=== PATIENT | female | born 1980 | race American Indian/Alaskan Native ===

== ENCOUNTER 2019-01-12 13:11 | Emergency (ER) | payer MEDICAID, OTHER ==
[2019-01-12 13:55] VITALS: BP 133/92
--- NOTE | 2019-01-12 14:08 | EDM.PDOC ---
<Nellie Jimenez - Last Filed: 01/12/19 15:06> ED HPI GENERAL MEDICAL PROBLEM - General Chief Complaint: Neuro Symptoms/Deficits Stated Complaint: RIGHT SIDE OF FACE IS NUMB Time Seen by Provider: 01/12/19 13:50 Source of Information: Reports: Patient History Limitations: Reports: No Limitations - History of Present Illness INITIAL COMMENTS - FREE TEXT/NARRATIVE: Patient presents to ER today with CC of right sided facial numbness/weakness that began initially on Thursday. Patient states that she "woke up like this", patient denies hitting her head or sustaining any trauma. Patient reports that she has to physically close her right eye lid or it won't close. Patient does not demonstrate any dysphagia, although there is noted decreased movement to right side of mouth. Patient denies any weakness in her extremities, shortness of breath, or chest pain. Patient VSS. Patient does have PMH of leaking aortic valve that she is currently doctoring for, she states that her "leak is not large enough to need surgery". Patient is alert & oriented x4. Patient NIH scale negative. PERRLA. Onset Date: 01/09/19 Location: Reports: Face (right sided facial weakness/numbness) Associated Symptoms: Reports: No Other Symptoms - Related Data Allergies Allergy/AdvReac Type Severity Reaction Status Date / Time acetaminophen [From Tylenol] Allergy Stomach Verified 01/12/19 13:59 Ache ibuprofen [From Motrin] Allergy Tachycardia Verified 01/12/19 13:59 Home Meds: Home Meds Buprenorphine HCl/Naloxone HCl [[place]av[place] 2.1-0.3 mg Film] 1 unit PO DAILY [History] Past Medical History Cardiovascular History: Reports: Other (See Below) Other Cardiovascular History: mass in heart and leaking valve Psychiatric History: Reports: Addiction Endocrine/Metabolic History: Reports: Diabetes, Type II Social & Family History - Tobacco Use Smoking Status *Q: Former Smoker Used Tobacco, but Quit: Yes Month/Year Tobacco Last Used: 2016 - Caffeine Use Caffeine Use: Reports: Coffee - Recreational Drug Use Recreational Drug Use: No ED ROS GENERAL - Review of Systems Review Of Systems: ROS reveals no pertinent complaints other than HPI. ED EXAM, NEURO - Physical Exam Exam: See Below Exam Limited By: No Limitations General Appearance: Alert, WD/WN, No Apparent Distress Ears: Normal External Exam, Normal Canal, Hearing Grossly Normal, Normal TMs Nose: Normal Inspection, Normal Mucosa, No Blood Throat/Mouth: Normal Inspection, Normal Lips, Normal Teeth, Normal Gums, Normal Oropharynx, Normal Voice, No Airway Compromise Head Exam: Atraumatic, Normocephalic, Other (right sided facial numbness; inability to close eye without manually doing so. Additionally noted, right sided mouth has decreased movement ) Neck: Normal Inspection, Supple, Non-Tender, Full Range of Motion Respiratory/Chest: No Respiratory Distress, Lungs Clear, Normal Breath Sounds, No Accessory Muscle Use, Chest Non-Tender Cardiovascular: Normal Peripheral Pulses, Regular Rate, Rhythm, No Edema, No Gallop, No JVD, No Murmur, No Rub GI/Abdominal: Normal Bowel Sounds, Soft, Non-Tender, No Organomegaly, No Distention, No Abnormal Bruit, No Mass Neurological: Alert, Normal Mood/Affect, Normal Dorsiflexion, Normal Plantar Flexion, Normal Gait, Normal Reflexes, No Motor/Sensory Deficits, Oriented x 3. No: CN II-XII Intact (cranial nerve IIV impaired on right side) Back Exam: Normal Inspection, Full Range of Motion, NT Extremities: Normal Inspection, Normal Range of Motion, Non-Tender, No Pedal Edema, Normal Capillary Refill Psychiatric: Normal Affect, Normal Mood Skin Exam: Warm, Dry, Intact, Normal Color, No Rash Course - Vital Signs Last Recorded V/S: Last Vital Signs Temp 97.1 F 01/12/19 13:52 Pulse 68 01/12/19 13:52 Resp 16 01/12/19 13:52 BP 133/92 H 01/12/19 13:52 Pulse Ox 96 01/12/19 13:52 - Orders/Labs/Meds Labs: Laboratory Tests 01/12/19 01/12/19 01/12/19 Range/Units 14:22 14:22 14:22 WBC 6.1 (5.0-10.0) 10^3/uL RBC 4.87 (4.2-5.4) 10^6/uL Hgb 15.4 (12.0-16.0) g/dL Hct 44.4 (37.0-47.0) % MCV 91.2 (80-100) fL MCH 31.6 (27.0-34.0) pg MCHC 34.7 (33.0-35.0) g/dL Plt Count 109 L (150-450) 10^3/uL Neut % (Auto) 66.3 (42.2-75.2) % Lymph % (Auto) 24.9 (20.5-50.1) % [place] % (Auto) 6.7 (2-8) % Eos % (Auto) 1.8 (1.0-3.0) % Baso % (Auto) 0.3 (0.0-1.0) % Sodium 135 D (135-145) mmol/L Potassium 4.6 (3.6-5.0) mmol/L Chloride 105 D (101-111) mmol/L Carbon Dioxide 22.0 (21.0-31.0) mmol/L Anion Gap 12.6 BUN 18 D (7-18) mg/dL Creatinine 1.0 D (0.6-1.3) mg/dL Est Cr Clr Drug Dosing 70.01 mL/min Estimated GFR (MDRD) > 60 BUN/Creatinine Ratio 18.00 Glucose 165 H (74-105) mg/dL Calcium 8.7 (8.4-10.2) mg/dl Total Bilirubin 1.2 H (0.2-1.0) mg/dL AST 321 H (10-42) IU/L ALT 382 H (10-60) IU/L Alkaline Phosphatase 105 (42-121) IU/L C-Reactive Protein 0.9 (0.0-1.3) mg/dL Total Protein 8.7 H (6.7-8.2) g/dl Albumin 3.3 (3.2-5.5) g/dl Globulin 5.4 Albumin/Globulin Ratio 0.61 - Radiology Interpretation Free Text/Narrative:: CT HEAD WO CONTRAST: No acute intracranial abnormality. Departure - Departure Time of Disposition: 15:00 Disposition: Home, Self-Care 01 Condition: Good Clinical Impression: Hernandez's palsy, Elevated liver enzymes - Discharge Information *PRESCRIPTION DRUG MONITORING PROGRAM REVIEWED*: No *COPY OF PRESCRIPTION DRUG MONITORING REPORT IN PATIENT BRANDON: No Instructions: Hernandez Palsy, Adult, Liver Function Tests Forms: ED Department Discharge Additional Instructions: Your head CT scan in the emergency room was negative for any indication of a stoke. Your case is a condition called Paxton Palsy, there is a good possibility that this condition will resolve on its own. You may benefit from an over the counter eye lubricant,drops for the day and ointment for at night. You may tape your eye shut at night to assist in the dryness. Additionally your lab workup was benign, with the exception of elevated liver enzymes. You should follow up in the next week with your primary care provider to have further workup done for this. Return to clinic/ER with any worsening signs and symptoms. <Kali Fox - Last Filed: 01/12/19 15:09> Course - Re-Assessments/Exams Free Text/Narrative Re-Assessment/Exam: 01/12/19 15:08 I personally performed or re-performed the physical examination and medical decision making. I have verified all student documentation or findings, including history, physical exam and/or medical decision making.
[2019-01-12 14:48] LABS: ANION GAP 12.6; CHLORIDE,CL 105 mmol/L (101-111); SODIUM,NA 135 mmol/L (135-145)
== END 2019-01-12 15:18 | disposition home or self-care (01) ==
LOC: DL.ED 13:11
DX: G51.0 Bell's palsy (principal); R74.8 Abnormal levels of other serum enzymes; E11.9 Type 2 diabetes mellitus without complications; Z87.891 Personal history of nicotine dependence; Z88.6 Allergy status to analgesic agent
CPT/HCPCS: 36415; 70450; 80053; 85025; 86140; 99284-25

== ENCOUNTER 2019-11-02 05:55 | Day surgery (SDC) | payer MEDICAID ==
[2019-11-02] MEDS ORDERED: Midazolam 1 MG/ML 2 ML SDV IV ONE ×3 (05:56→07:11)
[2019-11-02] MEDS ORDERED: fentaNYL 100 MCG/2 ML SDV IV ONE ×3 (05:56→07:09)
[2019-11-02] MEDS ORDERED: fentaNYL 100 MCG/2 ML SDV ONE (06:06)
[2019-11-02] MEDS ORDERED: Midazolam 1 MG/ML 2 ML SDV ONE (06:06)
[2019-11-02] MEDS ORDERED: Dextrose 5%-0.45% NaCl 1,000 ML IV SCH ×2 (06:30→07:00)
[2019-11-02] MEDS ORDERED: Sodium Chloride 0.9% 10 ML Syringe FLUSH PRN (07:00)
--- NOTE | 2019-11-02 09:18 | OR ---
DATE: 11/02/2019 PROCEDURE: Esophagogastroduodenoscopy and multiple pinch biopsies. INSTRUMENT USED: GIF-HQ190 Olympus video panendoscope. PREMEDICATIONS: No oral or topical anesthesia used. Fentanyl 100 mcg intravenous, Versed 2 mg intravenous. 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 INDICATION: Diabetic patient with chronic hepatitis C, on multiple medications with persistent episodes of abdominal pain, unexplained and not responsive to medical measures. Esophagogastroduodenoscopy is performed for detection of any active erosive lesions, detection for any evidence of esophageal varices, H pylori status to be determined, endoscopic hemostasis therapy if needed. DESCRIPTION OF PROCEDURE: The scope was passed with ease. Adequate visualization of the esophagus was made from proximal to distal areas. No upper esophageal lesions identified. No distal esophageal stricture. No uphill or downhill esophageal varices. No Kaleigh-Vicente tear. No evidence of erosive esophagitis by Vilas criteria. No esophageal polyp or tumor mass identified. Z-line was seen at around 40 cm distal to the oral verge. Configuration consistent with grade 1 by ZAP classification. No proximal gastric varices noted. Gastric fundus examination by retroflexion showed no polypoid lesions. There was moderate amount of solid food retention in the areas seen, limiting visualization. No gastric ulcer, malignant mass, or vascular ectasia identified. Duodenal bulb showed no ulcer. Visualized second part of the duodenum was unremarkable. Multiple pinch biopsies were taken from the gastric antrum and proximal body and sent for PyloriTek test for H pylori, and if negative in an hour, tissue is to be sent for histopathology. No bleeding was noted from any of the visualized areas at the completion of examination. Photographs were taken of the duodenal bulb, gastric antrum, fundus, and distal esophagus. IMPRESSION: Gastroparesis diabeticorum. The patient tolerated the procedure well. [facility] /[id number]
--- NOTE | 2019-11-02 12:39 | LETTER ---
11/02/[address] [facility] [address] [place] [address] RE: MELLISSARONALD NAT : 1980 Dear Ms. Morales: Ms. Ronald Kiser had esophagogastroduodenoscopy done this morning and she tolerated procedure well. I herewith send a copy of the endoscopy note and photographs for your review. Thank you. Sincerely. [facility] /[id number]
[2019-11-02 12:41] VITALS: BP 119/66; PULSE 76
== END 2019-11-02 09:30 | disposition home or self-care (01) ==
LOC: DL.ENDO 05:55
PROVIDERS: ATTEND Internal Medicine Gastroenterology
DX: E11.43 Type 2 diabetes mellitus with diabetic autonomic (poly)neuropathy (principal); K31.84 Gastroparesis; B96.81 Helicobacter pylori [H. pylori] as the cause of diseases classified elsewhere; B18.2 Chronic viral hepatitis C; E66.09 Other obesity due to excess calories; F10.21 Alcohol dependence, in remission; Z68.41 Body mass index [BMI] 40.0-44.9, adult
CPT/HCPCS: 43239; 87077; J2250; J3010; J7042

== ENCOUNTER 2022-07-02 18:44 | Emergency (ER) | payer MEDICAID ==
[2022-07-02] MEDS ORDERED: Hetastarch in NS 500 ML ONE (19:08)
[2022-07-02] MEDS ORDERED: Octreotide 100 MCG/ML SDV ONE ×2 (19:19→20:12)
[2022-07-02] MEDS ORDERED: Phytonadione 10 MG in Sodium Chloride 0.9% 50 ML IV ONE (19:23)
[2022-07-02] MEDS ORDERED: Pantoprazole 40 MG Vial IVPUSH ONE (19:25)
[2022-07-02] MEDS ORDERED: fentaNYL 100 MCG/2 ML SDV ONE (19:29)
[2022-07-02] MEDS ORDERED: Pantoprazole 40 MG in Sodium Chloride 0.9% 100 ML IV SCH (19:30)
[2022-07-02] MEDS ORDERED: Midazolam 1 MG/ML 2 ML SDV ONE ×2 (19:30→19:56)
[2022-07-02] MEDS ORDERED: Octreotide 100 MCG in Sodium Chloride 0.9% 99 ML IV SCH (19:30)
[2022-07-02] MEDS ORDERED: fentaNYL 250 MCG/5 ML SDV ONE (19:33)
[2022-07-02] MEDS ORDERED: cefTRIAXone 2 GM Vial IM ONE (20:06)
[2022-07-02] MEDS ORDERED: cefTRIAXone 1 GM Vial ONE (20:08)
[2022-07-02] MEDS ORDERED: Lidocaine 1% 10 ML MDV ONE (20:08)
[2022-07-02] MEDS ORDERED: methylPREDNISolone Sodium Succinate 125 MG/2 ML SDV ONE (20:20)
[2022-07-02] MEDS ORDERED: DOBUTamine/Dextrose 5%-Water 250 MG/250 ML BAG ONE (20:22)
[2022-07-02 20:30] LABS: PTT,PARTIAL THROMBOPLSTIN TIME 41.7 SEC (22.0-34.0)
[2022-07-02 20:40] LABS: ANION GAP 18.2 mEq/L (7-13)
[2022-07-02] MEDS ORDERED: Furosemide 40 MG/4 ML VIAL ONE (20:43)
[2022-07-02] MEDS ORDERED: Sodium Bicarbonate 8.4% 50 MEQ/50 ML Syringe ONE (23:41)
[2022-07-02] MEDS ORDERED: Calcium Chloride 10% 1 GM/10 ML Syringe ONE (23:41)
[2022-07-02] MEDS ORDERED: EPINEPHrine 1:10,000 1 MG/10 ML Syringe ONE (23:42)
== END 2022-07-02 21:31 ==
LOC: DL.ED 18:44
DX: I46.9 Cardiac arrest, cause unspecified (principal); K92.2 Gastrointestinal hemorrhage, unspecified; E11.22 Type 2 diabetes mellitus with diabetic chronic kidney disease; N18.30 Chronic kidney disease, stage 3 unspecified; Z88.8 Allergy status to other drugs, medicaments and biological substances; Z79.01 Long term (current) use of anticoagulants; Z79.82 Long term (current) use of aspirin; Z20.822 Contact with and (suspected) exposure to COVID-19
CPT/HCPCS: 36415; 36430; 71045; 80053; 83605; 83735; 84443; 84484; 85025; 85610; 85730; 86140; 86850; 86900; 86901; 86920; 86922; 87635; 99285; P9016; U0002